=== PATIENT | male | born 1990 | race African-American/Black ===

== ENCOUNTER 2025-09-14 15:12 | Emergency (ER) | payer OTHER, SELFPAY ==
--- NOTE | 2025-09-14 15:21 | ED.URI ---
HPI - URI/Sore Throat General Chief Complaint: Upper Respiratory Infection Stated Complaint: cold,flu Time Seen by Provider: 09/14/25 15:42 Source: patient and RN notes reviewed Mode of arrival: ambulatory Limitations: no limitations History of Present Illness HPI Narrative: 35-year-old male presents with concern for 3 week history of cough, nasal congestion and drainage. He reports headache. He reports he went to the emergency room on August 29 and will had a chest x-ray which was normal. He reports the symptoms are not improving and today he coughed up blood tinged sputum. MD elicited complaint: cough and nasal congestion Related Data Home Medications ?Medication ?Instructions ?Recorded ?Confirmed ?Last Taken ?Type naproxen 500 mg tablet mg 09/14/25 Unknown History Allergies Allergy/AdvReac Type Severity Reaction Status Date / Time No Known Allergies Allergy Verified 09/14/25 15:30 Review of Systems Review of Systems: CONSTITUTIONAL: Denies malaise, chills, sweats, or fever. EYES: Denies visual changes, redness, or discharge. ENT: Reports rhinorrhea, congestion, sinus pain CARDIOVASCULAR: Denies chest pain, palpitations, or edema. RESPIRATORY: Reports productive cough. Denies dyspnea. GASTROINTESTINAL: Denies abdominal pain, nausea, vomiting, diarrhea SKIN: Denies rash or itching. MUSCULOSKELETAL: Reports myalgia. NEUROLOGIC: Reports headache. All systems reviewed & are unremarkable except as noted in HPI and below PMFSH Comments At time of signature, agree with nursing past medical, surgical, social and family history. There is no relevant family history pertinent to the presenting complaint Exam Narrative: GENERAL: Well-appearing, well-nourished, and in no acute distress. HEAD: Normocephalic EYES: PERRLA, conjunctivae clear ENT: Nares clear. Mucous membranes moist. TM pearly segura with dull light reflex bilaterally; no tragal tenderness. Oropharynx not erythematous without lesions. Tonsils not enlarged and without exudate, no drooling, no hoarseness, no trismus, uvula midline. NECK: Supple. No lymphadenopathy CHEST: Clear to auscultation, breath sounds equal. No wheezing, rhonchi, rales, or stridor. No respiratory distress, speaks in full sentences. HEART: Regular rate and rhythm. No murmur heard. SKIN: Warm, dry, no rash. NEURO: Alert and oriented x3. PSYCH: Normal mood and affect MDM Differential Diagnosis Differential Diagnosis: Differential diagnosis considered: Loo virus, strep pharyngitis, allergic rhinitis, upper respiratory tract infection, sinusitis, rhinosinusitis, nasopharyngitis. viral pharyngitis, otitis media, otitis externa, pneumonia, bronchitis, viral cough syndrome, viral syndrome, and influenza. Exam findings show no acute concerns or changes; patient is non-toxic appearing and is in no distress. Patient is appropriate for outpatient treatment and follow-up. Critical Care Time Critical Care Time Critical Care Time: No Discharge Plan Discharge Clinical Impression: Sinobronchitis Patient Disposition: Home Condition: Stable Instructions: Antibiotic Form, Acute Bronchitis (ED) Additional Instructions: Take medications as prescribed Recommend antihistamine such as Benadryl at night time and Zyrtec or Anastasiia during the day Also, recommend symptomatic treatment includes: rest, fluids, and increase humidity of the air at home. Recommend Acetaminophen as directed on the bottle to reduce fever, pain, headache. Avoid smoking/second-hand smoke. Please schedule a follow-up visit with your personal physician for further evaluation and treatment within 3-5days. Including recheck and discussion of your blood pressure. If your symptoms persist, change or worsen significantly before you can contact your personal physician then please, without delay, go to the emergency department for further evaluation. Patient Language: Lithuanian Prescriptions: New prednisone 20 mg tablet 40 mg PO DAILY 5 Days Qty: 10 0RF doxycycline monohydrate 100 mg tablet 100 mg PO BID 7 Days Qty: 14 0RF No Action naproxen 500 mg tablet Follow-up/Referrals: UNKNOWN,DOCTOR [Primary Care Provider] Time of Disposition: 15:51
[2025-09-14 15:29] VITALS: BP 139/73; PULSE 77; RESP 20; TEMP 36.1; O2SAT 99
--- OUTSIDE RECORDS SUMMARY | 2025-09-14 15:50 | XMS_ITS | Clinical Summary ---
Author Organization 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 Gender Identity Not on file Sexual Orientation Not on file Plan of Treatment Health Maintenance Due Date Last Done Comments Hepatitis C Virus (HCV) Screening 1989 TdaP Immunization 1989 Hepatitis B Immunization (1 of 3 - 19+ 3-dose series) 2008 Human Papillomavirus (HPV) Immunization (1 - 3-dose SCDM series) 2016 Influenza Immunization (#1) 2025 SARS-COV-2 Immunization ( season) 2025 Respiratory Syncytial Virus (RSV) Immunization (Adult) (1 - 1-dose 75+ series) 2064 DTaP/Tdap/Td Immunization Discontinued 1990, 03/18/1990, 1989, Additional history exists Meningococcal Immunization (ACWY) Aged Out No longer eligible based on patient's age to complete this topic Pneumococcal Immunization Combined Aged Out No longer eligible based on patient's age to complete this topic Rotavirus Immunization Aged Out No lo nger eligible based on patient's age to complete this topic
--- OUTSIDE RECORDS SUMMARY | 2025-09-14 15:50 | XMS_ITS | Clinical Summary ---
Author Organization [facility] Address [address] [place] [id number] Care Team Providers Care Technical Support Manager Name Role Phone None, Provider MD Primary Care Provider Unavaila ble Allergies No known active allergies Medications No known medications Social History Tobacco Use Types Packs/Day Years Used Date Smoking Tobacco: Never Passive Smoke Exposure: Never Smokeless Tobacco: Never Tobacco Cessation:Counseling Given: Not Answered Alcohol Use Standard Drinks/Week Comments Yes 14 (1 standard drink = 0.6 oz pu re alcohol) Sex and Gender Information Value Date Recorded Sex Assigned at Not on file Legal Sex Male 4:42 PM CDT Gender Identity Not on file Sexual Orientation Not on file Last Filed Vital Signs Vital Sign Reading Time Taken Comments Blood Pressure 120/68 02/12/2023 8:27 AM CDT Pulse 61 02/12/2023 8:27 AM CDT Temperature 36.8 C (98.3 F) 02/12/2023 8:27 AM CDT Respiratory Rate 14 02/12/2023 8:27 AM CDT Oxygen Saturation 98% 02/02/2023 4:01 PM CDT Inhaled Oxygen Concentration - - Weight 77.1 kg (170 lb) 02/12/2023 8:27 AM CDT Height 172.7 cm (5' 8) 02/12/2023 8:27 AM CDT Body Mass Index 25.85 02/12/2023 8:27 AM CDT Plan of Treatment Health Maintenance Due Date Last Done Comments Annual Physical 1992 DTaP, Tdap and Td Vaccines (5 - Tdap) 2000 07/16/1991, 03/18/1990, 1989, Additional history exists Hepatitis C 2007 Hepatitis B Vaccines (1 of 3 - 19+ 3-dose series) 2008 HPV Vaccines (1 - 3-dose SCDM series) 2016 COVID-19 Vaccine (2024- season) 2025 Influenza Adult (#1) 2025 Hepatitis A Vaccines Aged Out No long er eligible based on patient's age to complete this topic Meningococcal B Vaccine Aged Out No l onger eligible based on patient's age to complete this topic Meningococcal Vaccine Aged Out No shoaib maura eligible based on patient's age to complete this topic Pneumococcal Vaccine: Pediatrics (0 to 5 Years) and At-Risk Patients (6 to 49 Years) Aged Out No longer eligible based on patient's age to complete this topic RSV Immunizations Under 20 Months Aged Out No longer eligible based on patient's age to complete this topic Insurance [facility] Care Teams Technical Support Manager Relationship Specialty Start Date End Date None, Provider, PCP - General UNKNOWN PHYSICIAN SPECIALTY 02/02/23
--- OUTSIDE RECORDS SUMMARY | 2025-09-14 15:50 | XMS_ITS | Clinical Summary ---
Author Organization [facility] Address [address] [place] [address] Care Team Providers Care Painter Railroad Car Name Role Phone Shae Phillips MD Primary Care Provider Source Comments [facility],non-owned Affiliates and Associated Physician Practices is amultiple site organization consisting of ambulatory clinics and hospital sitesin [place], [place], [place] and [place]. This disclosure is being madepursuant to the Care Everywhere program and may not contain all information available regarding this patient. Last updated 18.[place] Allergies No known active allergies Medications * This document contains information received from the source organization and may not represent a complete record from that organization. * Be aware that medications may not be up to date on this document. Alwaysverify current medications with the patient. chlorhexidine (Peridex) 0.12 % solution 01/18/2024 Active pantoprazole EC (Protonix) 40 MG tabletIndication s:Other chronic gastritis, presence of bleeding unspecified Take 1 (one) tablet by mouth once daily 90 tablet 1 04/11/2024 Active Active Problems Problem Noted Date Diagnosed Date Depressive disorder 03/14/2024 Exposure to STD 03/14/2024 Gastroesophageal reflux disease 03/14/2024 Low back pain 03/14/2024 Myopia 03/14/2024 Neck pain 03/14/2024 Nicotine dependence 03/14/2024 Patient counseled 03/14/2024 Posttraumatic stress disorder 02/13/2024 Alcohol use disorder 02/13/2024 Social anxiety disorder 02/13/2024 Chronic gastritis 02/13/2024 Adjustment disorder with mixed anxiety and depre ssed mood 04/29/2018 Personal history of deployment 02/27/20 18 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 Resolved Problems Problem Noted Date Diagnosed Date Resolved Date Condition influencing health status 03/14/2024 04/11/2024 Foot pain 03/14/2024 04/11/2024 Screening examination for se xually transmitted disease 03/14/2024 04/11/2024 Immunizations Immunization Administration Dates Next Due ANTHRAX, HISTORIC VACCINE 12/10/2017,,09/18/2012,2009 Covid [employer] primary Monoval ent 12+ yr 0.3ml 11/15/2021,10/25/2021 DTP, HISTORIC VACCINE 07/16/1991, 990,1989,1988 FLU VACCINE TRI IIV3 SPLIT P F IM (FLUVIRIN) 07/13/2015,08/27/2014 HEP A/HEP B 02/09/2010,08/06/2009,06/25/2009 HIB VACCINE 01/07/1992 INFLUENZA A A1P6-18 VACCINE 08/30/2009 INFLUENZA VACCINE 07/01/2012,08/31/2011,06/25/20 09 INFLUENZA VACCINE, QUADR. 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,09/27/2015 MULU VACCINE QUAD LAIV4 PF NASAL 07/18/2013 MENINGOCOCAL MENINGITIS 06/23/2009 MMR 09/25/2014,06/25/2009 MMR VACCINE 07/16/1991 PNEUMOCOCCAL PPSV23 02/27/2018 POLIO IPV 06/23/2009 POLIO OPV 07/16/1991,1989,1989 SMALLPOX (VACCINIA) VACCINE, LIVE 03/08/2010 TDAP (7yrs+) 03/18/2019,06/23/2009 TYPHOID IM 02/27/2018, 5,09/18/2012,2009 Family History Medical History Relation Name Comments None Known Father Diabetes - Type 2 Mother Relation Name Status Comments Brother Alive 2 brother's Father Alive Mother Alive Sister Alive 2 sister's Social History Tobacco Use Types Packs/Day Years Used Date Smoking Tobacco: Former Cigarettes 0.5 7 2 012 - 2018 Smokeless Tobacco: Never Tobacco Cessation:Counseling Given: No Alcohol Use Standard Drinks/Week Comments Yes 0 (1 standard drink = 0.6 oz pur e alcohol) AUDIT-C Answer Date Recorded Q1: How often do you have a drink containing alcohol? 4 or more times a week 02/25/2024 Average Number of Drinks Not on file 024 Q3: How often do you have si x or more drinks on one occasion? Daily or almost daily 02/25/2024 PHQ-2 Answer Date Recorded Patient Health Questionnaire-2 Score 0 04/11/2024 Sex and Gender Information Value Date Recorded Sex Assigned at Not on file Legal Sex Male 2:18 PM CDT Gender Identity Not on file Sexual Orientation Not on file Last Filed Vital Signs Vital Sign Reading Time Taken Comments Blood Pressure 110/74 04/11/2024 10:45 AM CDT Pulse 77 04/11/2024 10:45 AM CDT Temperature 36.5 C (97.7 F) 04/11/2024 10:45 AM CDT Respiratory Rate 18 04/18/2020 3:06 PM CDT Oxygen Saturation 100% 04/11/2024 10:45 AM CDT Inhaled Oxygen Concentration - - Weight 82.2 kg (181 lb 3.2 oz) 04/11/2024 10:45 AM CDT Height 172.7 cm (5' 8) 04/11/2024 10:45 AM CDT Body Mass Index 27.55 04/11/2024 10:45 AM CDT Plan of Treatment Health Maintenance Due Date Last Done Comments HPV VACCINE (1 - 3-dose SCDM series) 2016 DEPRESSION SCREENING 10/15/2024 02/13/2024 COVID-19 VACCINE ( season) 2025 11/15/2021, 10/25/2021 INFLUENZA VACCINE (#1) 2025 8, 07/24/2017, 08/02/2016, Additional history exists DTAP/TDAP/TD VACCINES (7 - Td or Tdap) 03/18/2029 03/18/2019, 06/23/2009, 07/16/1991, Additional history exists ZOSTER VACCINE (1 of 2) 2039 HIB VACCINE Completed 01/07/1992 MENINGOCOCCAL GROUPS A/C/Y/W VACCINE Aged Out 06/23/2009 No longer eligible based on patient's age to complete this topic HEPATITIS B VACCINE Completed 02/09/2010, 08/06/2009, 06/25/2009 PNEUMOCOCCAL VACCINE Aged Out 02/27/2018 No long er eligible based on patient's age to complete this topic HEPATITIS C SCREENING Completed 04/07/2024 HIV SCREENING Completed 04/07/2024 MENINGOCOCCAL (Group B) VACCINE SHARED DECISION-MAKING Aged Out No longer eligible based on patient's age to complete this topic Procedures Procedure Name Priority Date/Time Associated Diagnosis Comments HEPATITIS C ANTIBODY Routine 04/07/2024 1:22 PM CDT Encounter for medical examination to establish care Screen for STD (sexually transmitted disease) HIV-1 HIV-2 ANTIBODY + HIV P24 AG PANEL Routine 04/07/2024 1:22 PM CDT Encounter for medical examination to establish care Screen for STD (sexually transmitted disease) from Last 3 Months or Most Recently Relevant to Health Maintenance Results * HIV-1 HIV-2 ANTIBODY + HIV P24 AG PANEL (04/07/2024 1:22 PM CDT) Pathologist [facility] HIV Screen 4th Generation w Reflex Non Reactive Non Reactive [facility] INSURANCE BILL Comment: HIV Negative HIV-1/HIV-2 antibodies and HIV-1 p24 antigen were NOT detected. There is no laboratory evidence of HIV infection. FASTING Blood BLOOD SPECIMEN / Unknown 04/07/2024 1:22 PM CDT 04/07/2024 Narrative Resulting Agency Comment [facility] [address] [facility] [address] [facility] [id number] [place] Giulia Munoz INTERNAL GRINDER-TIME CLOCK REPAIRER LAB - CHEMISTRY ORDERABL ES Final Result [facility] INSURANCE BILL [address] [place] [address] * HEPATITIS C ANTIBODY (04/07/2024 1:22 PM CDT) Hepatitis C Antibody Non Reactive Non Reactive [facility] INSURANCE BILL Comment: HCV antibody alone does not differentiate between previously resolved infection and active infection. Equivocal and Reactive HCV antibody results should be followed up with an HCV RNA test to support the diagnosis of active HCV infection. FASTING Blood BLOOD SPECIMEN / Unknown 04/07/2024 1:22 PM CDT 04/07/2024 Narrative Resulting Agency Comment [facility] performed at: [facility] [address] [facility] [facility] [id number] [place] Giulia Munoz INTERNAL GRINDER-TIME CLOCK REPAIRER LAB - CHEMISTRY ORDERABL ES Final Result [facility] INSURANCE BILL [address] [place] [address] from Last 3 Months or Most Recently Relevant to Health Maintenance Insurance [facility] Care Teams Painter Railroad Car Relationship Specialty Start Date End Date Shae Phillips MD [address] [place] [address] PCP - General Internal Medicine 02/13/24
== END 2025-09-14 15:55 | disposition home or self-care (01) ==
PROVIDERS: Emergency Provider Nurse Practitioner
DX: J32.9 Chronic sinusitis, unspecified (principal); J40 Bronchitis, not specified as acute or chronic
CPT/HCPCS: 99203; G0463